=== PATIENT | female | born 1980 | race Caucasian/White ===

== ENCOUNTER → 2017-09-11 | Emergency (ER) | payer OTHER ==
[~2017-09-11] VITALS: Ht 162.6 cm; Wt 66.2 kg
[~2017-09-11] MED LIST: KETO10TA2 PO
== END | disposition home or self-care (01) ==
LOC: ER 14:50
DX: N20.1 Calculus of ureter (principal)

== ENCOUNTER 2020-12-28 08:00 | Outpatient (CLI) | payer OTHER | END 2020-12-28 08:30 | disposition home or self-care (01) | LOC: PPH VACUNA 08:00 | DX: Z23 Encounter for immunization (principal) ==

== ENCOUNTER 2021-09-20 08:00 | Outpatient (CLI) | payer OTHER | END 2021-09-20 08:30 | disposition home or self-care (01) | LOC: PPH VACUNA 08:00 | PROVIDERS: ATTEND Emergency Medicine Pediatric Emergency Medicine | DX: Z23 Encounter for immunization (principal) ==